=== PATIENT | female | born 1935 | race Caucasian/White ===

== ENCOUNTER 2017-01-13 20:04 | Emergency (ER) | payer MEDICARE ==
[~2017-01-13] VITALS: Ht 157.5 cm; Wt 90.7 kg
[~2017-01-13 20:04] MED LIST: ALPR0.254 PO; CITA10TA8 PO; LEVO25TA4 PO; LISI1TAB5 PO; ZOLP5TAB4 PO
[2017-01-13 20:47] LABS: BASO # 0.1 x10^3/uL (0.0-0.2); BASO % 1 % (0-3); EOS % 0 % (0-3); HEMATOCRIT 34.6 % (36.0-47.0); HEMOGLOBIN 11.9 g/dL (12.0-15.5); LYMPH # 0.3 x10^3/uL (1.0-4.8); LYMPH % 7 % (24-48); MEAN CORPUSCULAR HEMOGLOBIN 32 pg (25-35); MEAN CORPUSCULAR HGB CONC 35 g/dL (31-37); MEAN CORPUSCULAR VOLUME 92 fL (79-100); MONO % 16 % (0-9); NEUT % 76 % (31-73); PLATELET COUNT 170 x10^3/uL (140-400); RED BLOOD COUNT 3.78 x10^6/uL (3.50-5.40); WHITE BLOOD COUNT 4.9 x10^3/uL (4.0-11.0)
[2017-01-13 20:57] LABS: INR 1.3 (0.8-1.1); PROTHROMBIN TIME PATIENT 15.2 SEC (11.7-14.0)
[2017-01-13 20:58] LABS: BILIRUBIN,URINE SMALL (NEG); GLUCOSE,URINE NEGATIVE (NEG); NITRITE,URINE NEGATIVE (NEG); PH,URINE 5.5; PROTEIN,URINE 30 mg/dL (NEG-TRACE)
[2017-01-13 21:21] LABS: BACTERIA,URINE FEW /HPF (0-FEW); RBC,URINE 0 /HPF (0-2); SQUAMOUS EPITHELIAL CELL,UR MOD /LPF; WBC,URINE OCC /HPF (0-4)
[2017-01-13 22:04] LABS: CALCIUM 9.1 mg/dL (8.5-10.1); CREATININE 1.3 mg/dL (0.6-1.0); GFR 39.5; POTASSIUM 3.9 mmol/L (3.5-5.1)
[2017-01-13 22:08] LABS: ALBUMIN 3.5 g/dL (3.4-5.0); DIRECT BILIRUBIN 0.1 mg/dL (0.0-0.2); MAGNESIUM 1.5 mg/dL (1.8-2.4); TOTAL BILIRUBIN 0.4 mg/dL (0.2-1.0)
[2017-01-13 22:17] LABS: CKMB INDEX 0.5 % (0-4); CKMB MASS 1.1 ng/mL (0.0-3.6)
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
[2017-01-13 22:49] VITALS: BP 96/63
--- NOTE | 2017-01-14 06:28 | EKG ---
[facility] [address] [place] [address] Test Date: 2017-01-13 Test Time: 20:18:42 Pat Name: NIALL OWODS Department: Room: Gender: F Staff Radiographer: : 1935 Requested By: MARK PERSON Order Number: [id number] Reading MD: Measurements Intervals [place] Rate: 90 P: 0 NE: 184 QRS: 18 QRSD: 84 T: 51 QT: 340 QTc: 420 Interpretive Statements SINUS RHYTHM QRS(T) CONTOUR ABNORMALITY CONSIDER ANTEROSEPTAL MYOCARDIAL DAMAGE POSSIBLY ABNORMAL ECG RI6.01 No previous ECG available for comparison
--- NOTE | 2017-01-14 09:25 | RAD ---
INDICATION: fell, weak COMPARISON: 01/04/2014 FINDINGS: Single view of chest obtained. No definite focal airspace consolidation. Cardiac silhouette similar to prior. Degenerative changes of the right shoulder and bilateral acromioclavicular joints IMPRESSION: No definite focal airspace consolidation. Irregular contour of the left hemidiaphragm. Could be from causes such as diaphragmatic eventration
== END 2017-01-13 23:00 | disposition home or self-care (01) ==
LOC: ER 20:04
DX: Z59.9 Problem related to housing and economic circumstances, unspecified (principal); I10 Essential (primary) hypertension; F41.9 Anxiety disorder, unspecified; F03.90 Unspecified dementia, unspecified severity, without behavioral disturbance, psychotic disturbance, mood disturbance, and anxiety; W07.XXXA Fall from chair, initial encounter; Y93.89 Activity, other specified; Y92.89 Other specified places as the place of occurrence of the external cause; Y99.8 Other external cause status
CPT/HCPCS: 36415; 51701; 71010; 80048; 80076; 81001; 82553; 83735; 83880; 84484; 85027; 85610; 93005; 99285-25

== ENCOUNTER 2017-09-01 16:20 | Inpatient (IN) | payer MEDICARE ==
[~2017-09-01] VITALS: Ht 154.9 cm; Wt 82.8 kg
[~2017-09-01 16:20] MED LIST changes: -ZOLP5TAB4 PO; +ZOLP5TAB5 PO
--- NOTE | 2017-09-01 16:24 | PHYS DOC ---
Past Medical History Past Medical History: Anxiety, Hypertension Additional Past Medical Histor: [facility] Past Surgical History: , Hysterectomy, Knee Replacement, Other Additional Past Surgical Histo: BX KNEE Alcohol Use: None Drug Use: None Adult General Chief Complaint Chief Complaint: MECHANICAL FALL HPI HPI Patient is a 82 year old female presenting to the emergency department for evaluation of right knee pain status post fall. Patient has right knee prostheses and says that her right knee gives out some of the time and she says that she had her right knee give out and she tripped and fell and landed directly on her right knee on a carpeted floor. She was having severe pain so she took one Tylenol and now her pain is gone. She says she has had recurrent issues with pain and giving out at times however she denies any unilateral weakness numbness tingling. She is in no obvious distress and quite pleasant at this time. Of note she is supposed to use a walker however she has not been using it all the time as directed. Review of Systems Review of Systems Constitutional: Denies fever or chills [] Musculoskeletal: Denies back pain. Positive right knee joint pain [] Integument: Denies rash or skin lesions [] Neurologic: Denies headache, focal weakness or sensory changes [] Allergies Allergies Allergies Coded Allergies Type Severity Reaction Last Updated Verified No Known Drug Allergies 09/01/17 No Physical Exam Physical Exam Constitutional: Well developed, well nourished, no acute distress, non-toxic appearance. [] HENT: Normocephalic, atraumatic, bilateral external ears normal, oropharynx moist, no oral exudates, nose normal. [] Neck: Normal range of motion, no tenderness, supple, no stridor. [] Cardiovascular:Heart rate regular rhythm, no murmur [] Lungs & Thorax: Bilateral breath sounds clear to auscultation [] Abdomen: Bowel sounds normal, soft, no tenderness, no masses, no pulsatile masses. [] Skin: Warm, dry, no erythema, no rash. [] Back: No tenderness, no CVA tenderness. [] Extremities: Right knee with small effusion but no erythema warmth or significant tenderness to palpation and she has good range of motion of her right knee hip and ankle with no significant pain or deformity. 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 NORMAL SENSATION AND MOVEMENT. Neurologic: Alert and oriented X 3, normal motor function, normal sensory function, no focal deficits noted. [] Current Patient Data Vital Signs Vital Signs Date Time Temp Pulse Resp B/P (MAP) Pulse Ox O2 Delivery O2 Flow Rate FiO2 09/01/17 16:25 98.2 75 20 95 Room Air 98.2 EKG EKG [] Radiology/Procedures Radiology/Procedures Right knee 3 views. History: Pain after a fall 3 views were taken of the right knee. There is a total joint prosthesis in good position. There is no fracture. There is no joint effusion. Impression: 1. Right knee joint prosthesis in good position, no acute fracture. DICTATED and SIGNED BY: CAROLINE TREADWELL MD DATE: 09/01/17 1652 Course & Med Decision Making Course & Med Decision Making Patient with traumatic right knee pain status post fall and she has normal distal neurovascular exam. Patient appears well with normal vital signs she'll be discharged in stable condition. Patient and family aware and agreeable with plan. Dragon Disclaimer Dragon Disclaimer This electronic medical record was generated, in whole or in part, using a voice recognition dictation system. Departure Departure Impression: Primary Impression: Right knee pain Disposition: 01 HOME, SELF-CARE Condition: GOOD Referrals: ARMIN STOCK MD (PCP) Patient Instructions: Knee Pain Additional Instructions: MAKE SURE TO USE YOUR WALKER ALL OF THE TIME. THANK YOU. Problem Qualifiers Primary Impression: Right knee pain Chronicity: acute Qualified Codes: M25.561 - Pain in right knee MARELY EPPERSON DO Sep 01, 2017 16:24
--- NOTE | 2017-09-01 16:55 | RAD ---
Right knee 3 views. History: Pain after a fall 3 views were taken of the right knee. There is a total joint prosthesis in good position. There is no fracture. There is no joint effusion. Impression: 1. Right knee joint prosthesis in good position, no acute fracture.
[2017-09-01 17:54] LABS: BASO # 0.1 x10^3/uL (0.0-0.2); BASO % 1 % (0-3); EOS % 2 % (0-3); HEMATOCRIT 37.2 % (36.0-47.0); HEMOGLOBIN 12.5 g/dL (12.0-15.5); LYMPH # 2.7 x10^3/uL (1.0-4.8); LYMPH % 31 % (24-48); MEAN CORPUSCULAR HEMOGLOBIN 31 pg (25-35); MEAN CORPUSCULAR HGB CONC 34 g/dL (31-37); MEAN CORPUSCULAR VOLUME 93 fL (79-100); MONO % 8 % (0-9); NEUT % 59 % (31-73); PLATELET COUNT 219 x10^3/uL (140-400); RED CELL DISTRIBUTION WIDTH 13.2 % (11.5-14.5); WHITE BLOOD COUNT 8.6 x10^3/uL (4.0-11.0)
[2017-09-01 18:08] LABS: CALCIUM 9.1 mg/dL (8.5-10.1); CREATININE 1.1 mg/dL (0.6-1.0); GFR 47.8; POTASSIUM 4.3 mmol/L (3.5-5.1)
[2017-09-01 18:10] VITALS: BP 167/48
[2017-09-01] MEDS: IBUPROFEN 600 MG TABLET. PO PRN (18:45)
[2017-09-01 19:00] VITALS: BP 108/60
[2017-09-01] MEDS ORDERED: LORA1TAB PO (19:32)
[2017-09-01] MEDS ORDERED: LEVO88TA4 PO (19:32)
[2017-09-01] MEDS ORDERED: SERT100T PO (19:32)
[2017-09-01] MEDS ORDERED: ALEN35TA6 PO (19:32)
[2017-09-01] MEDS ORDERED: ESTR1TAB15 PO (19:32)
[2017-09-01 23:00] VITALS: BP 128/53
[2017-09-01] MEDS ORDERED: INFLUENZA VAX SCREEN BY RX. MC ONE (23:00)
[2017-09-01] MEDS ORDERED: PNEUMOCOCCAL VAX SCREEN BY RX. MC ONE (23:00)
[2017-09-02 03:15] VITALS: BP 134/68
[2017-09-02] MEDS: IBUPROFEN 600 MG TABLET. PO PRN (03:24)
[2017-09-02 07:00] VITALS: BP 117/58
[2017-09-02] MEDS: LEVOTHYROXINE 88 MCG TABLET PO SCH (07:00)
[2017-09-02] MEDS: SERTRALINE 50 MG TABLET. PO SCH (08:12)
[2017-09-02] MEDS: LORazepam 1 MG TABLET PO PRN ×2 (08:24→22:02)
[2017-09-02] MEDS ORDERED: ALENDRONATE SODIUM 10 MG PO SCH (09:00)
[2017-09-02] MEDS ORDERED: PNEUMOC CONJ VACC 23-VALENT 0.5 ML VIAL. VAX IM ONE (09:00)
[2017-09-02] MEDS ORDERED: FLU VACC QS2017-18 (36MOS+)/PF 0.5 ML SYRINGE. VAX IM ONE (09:00)
[2017-09-02] MEDS ORDERED: ESTRADIOL 1 MG TABLET. PO SCH (09:00)
--- NOTE | 2017-09-02 09:16 | PDOC1 ---
History and Physical Date of Admission Date of Admission DATE: 09/01/17 Identification/Chief Complaint Chief Complaint Right knee pain and weakness Problems: Source Source: Patient History of Present Illness History of Present Illness Pt is well known to me as a clinic patient. She says that over the past 3 days the pain in her right knee has slightly gotten worse. Went to reach for her underwear yesterday morning and her knee gave out. Was unable to ambulate after. She says that the pain has gotten better since she has been here. We have been working on senior living placement for a while in the clinic. Pt has dementia and her earlier this summer was diagnosed with terminal lung cancer and has since . There were concerns prior to his of pt being able to take care of herself and she was having frequent falls at home. Her daughter's have been helping take care of her since her . Past Medical History Cardiovascular: HTN, Hyperlipidemia Pulmonary: No pertinent hx GI: No pertinent hx Heme/Onc: No pertinent hx Hepatobiliary: No pertinent hx Psych: Anxiety, Depression Musculoskeletal: Osteoarthritis Rheumatologic: No pertinent hx Infectious disease: No pertinent hx ENT: No pertinent hx Renal/: Chronic renal failure Endocrine: Hypothyroidism Dermatology: No pertinent hx Past Surgical History Past Surgical History: , Total knee replacement, Hysterectomy Family History Family History: Coronary Artery Disease, Stroke Social History Smoke: No ALCOHOL: none Drugs: None Current Problem List Problem List Problems Medical Problems: (1) Right knee pain Status: Acute Problems: Current Medications Current Medications Current Medications Ibuprofen (Motrin) 600 mg PRN Q6HRS PRN PO INFLAMMATION Last administered on 03:24; Start 09/01/17 at 18:30 Estradiol (Estrace) 1 mg DAILY PO Last administered on 09/02/17 08:12; Start 09/02/17 at 09:00 Levothyroxine Sodium (Synthroid) 88 mcg DAILY07 PO ; Start 09/02/17 at 07:00 Lorazepam (Ativan) 1 mg PRN TID PRN PO ANXIETY Last administered on 09/02/17 08:24; Start 09/01/17 at 19:45 Non-Formulary Medication 10 mg DAILY PO ; Start 09/02/17 at 09:00; Status UNV Sertraline HCl (Zoloft) 100 mg DAILY PO Last administered on 09/02/17 08:12; Start 09/02/17 at 09:00 Info (Do NOT chart on this placeholder) 0.5 each 1X ONCE MC ; Start 09/01/17 at 23:00; Stop 09/01/17 at 23:01; Status UNV Pneumococcal Polyvalent Vaccine (Do NOT chart on this placeholder) 0.5 each 1X ONCE MC ; Start 09/01/17 at 23:00; Stop 09/01/17 at 23:01; Status UNV Influenza Virus Vaccine Quadrival (Fluarix Quad [id number] Syringe) 0.5 ml ONCE ONCE VAX IM Last administered on 09/02/17 08:17; Start 09/02/17 at 09:00; Stop 09/02/17 at 09:01; Status DC Pneumococcal Polyvalent Vaccine (Pneumovax 23) 0.5 ml ONCE ONCE VAX IM ; Start 09/02/17 at 09:00; Stop 09/02/17 at 09:01; Status DC Active Scripts Active Reported Levothyroxine Sodium 88 Mcg Tablet 1 Tab PO DAILY Alendronate Sodium 35 Mg Tablet 10 Mg PO DAILY Lorazepam 1 Mg Tablet 1 Tab PO PRN TID PRN Estradiol 1 Mg Tablet 1 Tab PO DAILY Zoloft (Sertraline Hcl) 100 Mg Tablet 1 Tab PO DAILY Levothyroxine Sodium 25 Mcg Tablet 88 Mcg PO DAILY Alprazolam 0.25 Mg Tablet 0.25 Mg PO BID Lisinopril-Hctz 20-12.5 Mg Tab (Lisinopril/Hydrochlorothiazide) 1 Each Tablet 1 Each PO DAILY Celexa (Citalopram Hydrobromide) 10 Mg Tablet 10 Mg PO DAILY Zolpidem Tartrate 5 Mg Tablet 5 Mg PO DAILY Allergies Allergies: Coded Allergies: No Known Drug Allergies (Unverified , 09/01/17) ROS General: No: Chills, Night Sweats PSYCHOLOGICAL ROS: YES: Anxiety, Depression, Memory difficulties Eyes: No Decreased vision, No Eye Pain HEENT: No: Nasal congestion, Sore Throat ALLERGY AND IMMUNOLOGY: YES: Post Nasal Drip, No: Hives Hematological and Lymphatic: No: Bleeding Problems, Blood Clots Respiratory: No: Cough, Shortness of breath Cardiovascular: No Chest Pain, No Palpitations, No Edema Gastrointestinal: No Nausea, No Vomiting, No Abdominal Pain, No Diarrhea, No Constipation Genitourinary: No Dysuria, No Urgency Musculoskeletal: Yes Joint Pain, No Muscle Pain Neurological: Yes Impaired Coord/balance, Yes Tremors, Yes Weakness, No Numbness/Tingling Skin: No Rash, No Skin Lesion Changes Physical Exam General: Alert, Oriented X3, Cooperative, No acute distress HEENT: Atraumatic, PERRLA, EOMI, Mucous membr. moist/pink Lungs: Clear to auscultation, Normal air movement Heart: RRR, no thrills, no rubs, no gallops Abdomen: Normal bowel sounds, Soft, No tenderness, No hepatosplenomegaly Extremities: No clubbing, No cyanosis, No edema, Other (has full ROM of right knee) Skin: No rashes, No breakdown, No significant lesion Neuro: Normal tone, Sensation intact, Cranial nerves 3-12 NL Psych/Mental Status: Mental status NL, Mood NL Vitals Vitals Vital Signs Date Time Temp Pulse Resp B/P (MAP) Pulse Ox O2 Delivery O2 Flow Rate FiO2 09/02/17 07:00 97.4 71 18 117/58 (77) 95 Room Air 97.4 Labs Labs Laboratory Tests Test 09/01/17 17:47 White Blood Count 8.6 x10^3/uL (4.0-11.0) Red Blood Count 4.00 x10^6/uL (3.50-5.40) Hemoglobin 12.5 g/dL (12.0-15.5) Hematocrit 37.2 % (36.0-47.0) Mean Corpuscular Volume 93 fL (79-100) Mean Corpuscular Hemoglobin 31 pg (25-35) Mean Corpuscular Hemoglobin Concent 34 g/dL (31-37) Red Cell Distribution Width 13.2 % (11.5-14.5) Platelet Count 219 x10^3/uL (140-400) Neutrophils (%) (Auto) 59 % (31-73) Lymphocytes (%) (Auto) 31 % (24-48) Monocytes (%) (Auto) 8 % (0-9) Eosinophils (%) (Auto) 2 % (0-3) Basophils (%) (Auto) 1 % (0-3) Neutrophils # (Auto) 5.1 x10^3uL (1.8-7.7) Lymphocytes # (Auto) 2.7 x10^3/uL (1.0-4.8) Monocytes # (Auto) 0.7 x10^3/uL (0.0-1.1) Eosinophils # (Auto) 0.1 x10^3/uL (0.0-0.7) Basophils # (Auto) 0.1 x10^3/uL (0.0-0.2) Sodium Level 138 mmol/L (136-145) Potassium Level 4.3 mmol/L (3.5-5.1) Chloride Level 105 mmol/L (98-107) Carbon Dioxide Level 26 mmol/L (21-32) Anion Gap 7 (6-14) Blood Urea Nitrogen 14 mg/dL (7-20) Creatinine 1.1 mg/dL (0.6-1.0) Estimated GFR (Cockcroft-Gault) 47.8 Glucose Level 99 mg/dL (70-99) Calcium Level 9.1 mg/dL (8.5-10.1) Laboratory Tests Test 09/01/17 17:47 White Blood Count 8.6 x10^3/uL (4.0-11.0) Red Blood Count 4.00 x10^6/uL (3.50-5.40) Hemoglobin 12.5 g/dL (12.0-15.5) Hematocrit 37.2 % (36.0-47.0) Mean Corpuscular Volume 93 fL (79-100) Mean Corpuscular Hemoglobin 31 pg (25-35) Mean Corpuscular Hemoglobin Concent 34 g/dL (31-37) Red Cell Distribution Width 13.2 % (11.5-14.5) Platelet Count 219 x10^3/uL (140-400) Neutrophils (%) (Auto) 59 % (31-73) Lymphocytes (%) (Auto) 31 % (24-48) Monocytes (%) (Auto) 8 % (0-9) Eosinophils (%) (Auto) 2 % (0-3) Basophils (%) (Auto) 1 % (0-3) Neutrophils # (Auto) 5.1 x10^3uL (1.8-7.7) Lymphocytes # (Auto) 2.7 x10^3/uL (1.0-4.8) Monocytes # (Auto) 0.7 x10^3/uL (0.0-1.1) Eosinophils # (Auto) 0.1 x10^3/uL (0.0-0.7) Basophils # (Auto) 0.1 x10^3/uL (0.0-0.2) Sodium Level 138 mmol/L (136-145) Potassium Level 4.3 mmol/L (3.5-5.1) Chloride Level 105 mmol/L (98-107) Carbon Dioxide Level 26 mmol/L (21-32) Anion Gap 7 (6-14) Blood Urea Nitrogen 14 mg/dL (7-20) Creatinine 1.1 mg/dL (0.6-1.0) Estimated GFR (Cockcroft-Gault) 47.8 Glucose Level 99 mg/dL (70-99) Calcium Level 9.1 mg/dL (8.5-10.1) VTE Prophylaxis Ordered VTE Prophylaxis Devices: Yes VTE Pharmacological Prophylaxi: No Assessment/Plan Assessment/Plan Pt is a 82yo CF admitted after fall with continued weakness in RLE 1)Right knee pain- pt has had multiple falls at home and there is concern of pt being able to care for herself at home. Extensive conversation has been had with family members and pt in the past and they have been working on placement. Will consult SW and pt work with PT/OT. Tylenol as needed for pain 2)HTN- well controlled, will continue Lisinopril 10mg 3)Anxiety- will continue pt's Lorazepam 1mg TID 4)Depression- will continue pt's Zoloft 100mg 5)Hypothyroidism- previously well controlled, will continue pt's Levothyroxine 88mcg. TSH pending 6)Osteoporosis- pt normally takes Alendronate 7)CKD- Stage 3, stable ARMIN STOCK MD Sep 02, 2017 09:16
[2017-09-02] MEDS: LISINOPRIL 10 MG TABLET PO SCH (10:46)
[2017-09-02 11:00] VITALS: BP 135/63
[2017-09-02 15:00] VITALS: BP 117/47
[2017-09-02] MEDS: ACETAMINOPHEN 325 MG TABLET. PO PRN ×2 (16:13→22:02)
[2017-09-02 19:47] VITALS: BP 113/46
[2017-09-02 23:18] VITALS: BP 127/61
[2017-09-03 03:26] VITALS: BP 121/49
[2017-09-03] MEDS: LORazepam 1 MG TABLET PO PRN (06:30)
[2017-09-03] MEDS: LEVOTHYROXINE 88 MCG TABLET PO SCH (06:30)
[2017-09-03] MEDS: ACETAMINOPHEN 325 MG TABLET. PO PRN ×2 (06:30→19:33)
[2017-09-03 06:49] LABS: BILIRUBIN,URINE NEGATIVE (NEG); GLUCOSE,URINE NEGATIVE (NEG); NITRITE,URINE NEGATIVE (NEG); PROTEIN,URINE NEGATIVE (NEG-TRACE); UROBILINOGEN,URINE 0.2 mg/dL (0.2 mg/dL)
[2017-09-03 06:57] LABS: BACTERIA,URINE 0 /HPF (0-FEW); RBC,URINE 0 /HPF (0-2); SQUAMOUS EPITHELIAL CELL,UR FEW /LPF; WBC,URINE 0 /HPF (0-4)
[2017-09-03 07:00] VITALS: BP 132/54
--- NOTE | 2017-09-03 08:09 | PDOC ---
SUBJECTIVE Subjective Pt is doing well. Having some knee pain but it is improved. No other complaints this morning OBJECTIVE Vital Signs Vital Signs Date Time Temp Pulse Resp B/P (MAP) Pulse Ox O2 Delivery O2 Flow Rate FiO2 09/03/17 03:26 97.7 73 18 121/49 (73) 93 Room Air 97.7 09/02/17 23:18 98.8 67 18 127/61 (83) 97 Room Air 98.8 09/02/17 20:00 Room Air 09/02/17 19:47 97.7 71 18 113/46 (68) 95 Room Air 97.7 09/02/17 15:00 98.1 69 18 117/47 (70) 93 Room Air 98.1 09/02/17 11:00 98.1 67 18 135/63 (87) 95 Room Air 98.1 09/02/17 10:46 71 117/58 PHYSICAL EXAM Physical Exam General: Alert, Oriented X3, Cooperative, No acute distress HEENT: Atraumatic, PERRLA, EOMI, Mucous membr. moist/pink Lungs: Clear to auscultation, Normal air movement Heart: RRR, no thrills, no rubs, no gallops Abdomen: Normal bowel sounds, Soft, No tenderness, No hepatosplenomegaly Extremities: No clubbing, No cyanosis, No edema, Other (has full ROM of right knee) Skin: No rashes, No breakdown, No significant lesion Neuro: Normal tone, Sensation intact, Cranial nerves 3-12 NL Psych/Mental Status: Mental status NL, Mood NL ASSESSMENT/PLAN Assessment/Plan Pt is a 82yo CF admitted after fall with continued weakness in RLE 1)Right knee pain- pt has had multiple falls at home and there is concern of pt being able to care for herself at home. Extensive conversation has been had with family members and pt in the past and they have been working on placement. SW consulted and pt is considering SNF. Pt is stable for discharge. Tylenol as needed for pain 2)HTN- well controlled, will continue Lisinopril 10mg 3)Anxiety- will continue pt's Lorazepam 1mg TID 4)Depression- will continue pt's Zoloft 100mg 5)Hypothyroidism- previously well controlled, will continue pt's Levothyroxine 88mcg. TSH this admission minimally elevated. Will continue to monitor outpatient 6)Osteoporosis- pt normally takes Alendronate 7)CKD- Stage 3, stable Problems: COMMENT Lab Laboratory Tests Test 09/03/17 06:28 Urine Collection Type Unknown Urine Color Yellow Urine Clarity Clear Urine pH 6.0 Urine Specific [place] <=1.005 Urine Protein Negative mg/dL (NEG-TRACE) Urine Glucose (UA) Negative mg/dL (NEG) Urine Ketones (Stick) Negative mg/dL (NEG) Urine Blood Negative (NEG) Urine Nitrite Negative (NEG) Urine Bilirubin Negative (NEG) Urine Urobilinogen Dipstick 0.2 mg/dL (0.2 mg/dL) Urine Leukocyte Esterase Negative (NEG) Urine RBC 0 /HPF (0-2) Urine WBC 0 /HPF (0-4) Urine Squamous Epithelial Cells Few /LPF Urine Bacteria 0 /HPF (0-FEW) ARMIN STOCK MD Sep 03, 2017 08:09
[2017-09-03] MEDS: LISINOPRIL 10 MG TABLET PO SCH (08:19)
[2017-09-03] MEDS: SERTRALINE 50 MG TABLET. PO SCH (08:22)
[2017-09-03 11:00] VITALS: BP 149/50
[2017-09-03 15:00] VITALS: BP 114/60
[2017-09-03 19:45] VITALS: BP 145/66
[2017-09-03 23:14] VITALS: BP 125/57
[2017-09-04 03:28] VITALS: BP 135/53
[2017-09-04] MEDS: ACETAMINOPHEN 325 MG TABLET. PO PRN (04:55)
[2017-09-04] MEDS: LEVOTHYROXINE 88 MCG TABLET PO SCH (06:34)
[2017-09-04 07:00] VITALS: BP 120/53
[2017-09-04] MEDS: LISINOPRIL 10 MG TABLET PO SCH (08:31)
[2017-09-04] MEDS: SERTRALINE 50 MG TABLET. PO SCH (08:31)
--- NOTE | 2017-09-04 09:18 | PDOC3 ---
Discharge Summary* Date of Admission: Sep 01, 2017 Date of Discharge: Sep 04, 2017 Admitting Diagnosis Fall, knee pain Problems: Final Diagnosis Right knee pain, Fall, HTN, Anxiety, Depression, Hypothyroidism, Osteoporosis, CKD- Stage 3, Dementia, Debility CONSULTS None Procedures Knee Xray- right knee joint prosthesis in good position, no fracture Brief Hospital Course DISCHARGE PHYSICAL EXAM General: Alert, Oriented X3, Cooperative, No acute distress HEENT: Atraumatic, PERRLA, EOMI, Mucous membr. moist/pink Lungs: Clear to auscultation, Normal air movement Heart: RRR, no thrills, no rubs, no gallops Abdomen: Normal bowel sounds, Soft, No tenderness, No hepatosplenomegaly Extremities: No clubbing, No cyanosis, No edema, Other (has full ROM of right knee) Skin: No rashes, No breakdown, No significant lesion Neuro: Normal tone, Sensation intact, Cranial nerves 3-12 NL Psych/Mental Status: Mental status NL, Mood NL Pt is a 82yo CF admitted after fall with continued weakness in RLE 1)Right knee pain- pt has had multiple falls at home and there is concern of pt being able to care for herself at home. Extensive conversation has been had with family members and pt in the past and they have been working on placement. Pt will be DC'd to SNF for rehabilitation, but likely will need [facility] 2)HTN- well controlled, will continue Lisinopril 10mg 3)Anxiety- will continue pt's Lorazepam 1mg TID 4)Depression- will continue pt's Zoloft 100mg 5)Hypothyroidism- previously well controlled, will continue pt's Levothyroxine 88mcg. TSH this admission minimally elevated. Will continue to monitor outpatient 6)Osteoporosis- pt normally takes Alendronate 7)CKD- Stage 3, stable 8)Dementia Disposition/Orders: D/C to Another Facility CONDITION AT DISCHARGE: Improved, Stable Diet: Cardiac Scheduled Alendronate Sodium (Alendronate Sodium), 10 MG PO DAILY, (Reported) Alprazolam (Alprazolam), 0.25 MG PO BID, (Reported) Citalopram Hydrobromide (Celexa), 10 MG PO DAILY, (Reported) Estradiol (Estradiol), 1 TAB PO DAILY, (Reported) Levothyroxine Sodium (Levothyroxine Sodium), 88 MCG PO DAILY, (Reported) Levothyroxine Sodium (Levothyroxine Sodium), 1 TAB PO DAILY, (Reported) Lisinopril/Hydrochlorothiazide (Lisinopril-Hctz 20-12.5 Mg Tab), 1 EACH PO DAILY , (Reported) Sertraline Hcl (Zoloft), 1 TAB PO DAILY, (Reported) Zolpidem Tartrate (Zolpidem Tartrate), 5 MG PO DAILY, (Reported) Scheduled PRN Lorazepam (Lorazepam), 1 TAB PO PRN TID PRN for ANXIETY, (Reported) PCP Follow up with Dr. Stock 2 weeks from discharge from SNF if going home Time Spent Total time spent with patient [] minutes for coordination of care, counseling, and education. ARMIN STOCK MD Sep 04, 2017 09:18
[2017-09-04 11:00] VITALS: BP 141/61
== END 2017-09-04 14:18 | DRG 554 ==
LOC: ER 16:20 → 4 NORTH 17:28
PROVIDERS: ADMIT Family Medicine; ATTEND Family Medicine
DX: M17.11 Unilateral primary osteoarthritis, right knee (principal); F03.90 Unspecified dementia, unspecified severity, without behavioral disturbance, psychotic disturbance, mood disturbance, and anxiety; N18.3 Chronic kidney disease, stage 3 (moderate); W01.0XXA Fall on same level from slipping, tripping and stumbling without subsequent striking against object, initial encounter; E03.9 Hypothyroidism, unspecified; E78.5 Hyperlipidemia, unspecified; F32.9 Major depressive disorder, single episode, unspecified; F41.9 Anxiety disorder, unspecified; Z96.659 Presence of unspecified artificial knee joint; I12.9 Hypertensive chronic kidney disease with stage 1 through stage 4 chronic kidney disease, or unspecified chronic kidney disease; R29.6 Repeated falls; M81.0 Age-related osteoporosis without current pathological fracture; Z82.3 Family history of stroke; Z82.49 Family history of ischemic heart disease and other diseases of the circulatory system; Z90.710 Acquired absence of both cervix and uterus; Y93.89 Activity, other specified; Y92.89 Other specified places as the place of occurrence of the external cause; Y99.8 Other external cause status
CPT/HCPCS: 36415; 51701; 73562; 80048; 81001; 84443; 85025; 90686; 97110; 97116; 99285-25